=== PATIENT | female | born 1935 | race Hispanic/Latino ===

== ENCOUNTER 2017-09-07 05:10 | Inpatient (IN) | payer MEDICARE, OTHER ==
--- NOTE | 2017-09-07 05:47 | ED PDOC ---
HPI: Abdomen Time Seen by Provider: 09/07/17 05:35 Chief Complaint (Nursing): GI Problem Chief Complaint (Provider): Abdominal pain History Per: Patient History/Exam Limitations: no limitations Additional Complaint(s): Patient is an 82 y/o female with no significant past medical history presenting to the emergency department for cramping lower abdominal pain ongoing for several days. The cramps are accompanied by a sense of urgency to have a bowel movement but notes that these episodes result in little to no bowel movement. Of note, patient recently finished a seven day course of antibiotics one week ago to treat her bronchitis and notes having a colonoscopy done last year in which a polyp was removed. Denies any abdominal surgeries and denies dysuria, urinary frequency, fever, chills, bloody stool, or other complaints. PCP: none provided. Past Medical History Reviewed: Historical Data Vital Signs: Last Vital Signs Temp 97.7 F 09/07/17 05:23 Pulse 96 H 09/07/17 05:23 Resp 16 09/07/17 05:23 BP 177/99 H 09/07/17 05:23 Pulse Ox 98 09/07/17 05:56 - Medical History PMH: No Chronic Diseases - Surgical History Surgical History: No Surg Hx Other surgeries: Colonoscopy (polyp removal) - Family History Family History: States: No Known Family Hx - Allergies Allergies/Adverse Reactions: Allergies Allergy/AdvReac Type Severity Reaction Status Date / Time No Known Allergies Allergy Verified 09/07/17 05:26 - ECG O2 Sat by Pulse Oximetry: 98 Medical Decision Making Medical Decision Making: Time: 05:38 Initial impression: Abdominal pain Initial plan: Abdominal/pelvic CT scan with IV contrast EKG Labs: EKG, CMP, Lipase, CBC Urine Culture C Diff toxin test Urinalysis Reevaluation Scribe Attestation: Documented by Nisha Pierce, acting as a scribe for JULIA Gipson. Provider Scribe Attestation: All medical record entries made by the Scribe were at my direction and personally dictated by me. I have reviewed the chart and agree that the record accurately reflects my personal performance of the history, physical exam, medical decision making, and the department course for this patient. I have also personally directed, reviewed, and agree with the discharge instructions and disposition. Disposition - Clinical Impression Clinical Impression: Abdominal pain - Patient ED Disposition Is Patient to be Admitted: Transfer of Care - Disposition Disposition: Transfer of Care Disposition Time: 05:58 Condition: FAIR Forms: [facility] ([place]ar[place]) Patient Signed Over To: Damian Lee Handoff Comments: EKG/LABS/CT ABD/PELVIS/UA/RE-EVALUATION
--- NOTE | 2017-09-07 06:11 | ED PDOC ---
- Laboratory Results Result Diagrams: 09/07/17 06:10 09/07/17 06:10 - ECG O2 Sat by Pulse Oximetry: 98 (RA) Pulse Ox Interpretation: Normal Medical Decision Making Medical Decision Makin:00 Patient signed over to me from JULIA Gipson. Labs and abdominal CT pending. Scribe Attestation: Documented by Nisha Pierce, acting as a scribe for Damian Lee MD. Provider Scribe Attestation: All medical record entries made by the Scribe were at my direction and personally dictated by me. I have reviewed the chart and agree that the record accurately reflects my personal performance of the history, physical exam, medical decision making, and the department course for this patient. I have also personally directed, reviewed, and agree with the discharge instructions and disposition. Disposition - Clinical Impression Clinical Impression: Abdominal pain - Disposition Disposition: Transfer of Care Disposition Time: 07:00 Condition: FAIR Forms: [facility] (Kosovan) Patient Signed Over To: Erasmo Araiza Handoff Comments: pending CT
[2017-09-07 06:15] LABS: BASO # 0.1 K/uL (0.0-0.2); BASO % 0.7 % (0.0-2.0); EOS # 0.3 K/uL (0.0-0.7); EOS % 1.9 % (0.0-4.0); HEMATOCRIT 40.4 % (34.0-47.0); LYMPH # 1.8 K/uL (1.0-4.3); LYMPH % 12.6 % (20.0-40.0); MEAN CELL VOLUME 93.2 fl (81.0-99.0); MEAN CORPUSCULAR HEMOGLOBIN 30.5 pg (27.0-31.0); MEAN CORPUSCULAR HGB CONC 32.8 g/dL (33.0-37.0); MONO # 1.2 K/uL (0.0-0.8); MONO % 8.5 % (0.0-10.0); NEUT % 76.3 % (50.0-75.0); NRBC % 0.2 % (0.0-0.0); RED CELL DISTRIBUTION WIDTH 13.2 % (11.5-14.5); WHITE BLOOD COUNT 14.4 K/uL (4.8-10.8)
[2017-09-07] MEDS: Sodium Chloride 0.9% 250 ML IV SCH ×4 (06:24→16:50)
[2017-09-07 06:32] LABS: ALB/GLOB RATIO 1.2 (1.0-2.1); ALKALINE PHOSPHATASE 67 U/L (38-126); ALT/SGPT 28 U/L (9-52); AST/SGOT 23 U/L (14-36); BILIRUBIN,TOTAL 0.5 mg/dl (0.2-1.3); BLOOD UREA NITROGEN 15 mg/dl (7-17); CALCIUM 8.6 mg/dL (8.4-10.2); CARBON DIOXIDE 24 mmol/L (22-30); CHLORIDE 109 mmol/L (98-107); GFR AFRICAN-AMERICAN > 60; GLUCOSE,RANDOM 112 mg/dL (65-105); LIPASE 169 U/L (23-300); POTASSIUM 4.1 MMOL/L (3.6-5.0); SODIUM 141 mmol/l (132-148); TOTAL PROTEIN 7.2 G/DL (6.3-8.2)
[2017-09-07] MEDS ORDERED: Iohexol 300 100 ML IJ ONE (06:45)
[2017-09-07] MEDS ORDERED: Sodium Chloride 0.9% 50 ML IV ONE (06:45)
--- NOTE | 2017-09-07 07:10 | ED PDOC ---
- Laboratory Results Result Diagrams: 09/07/17 06:10 09/07/17 06:10 - ECG O2 Sat by Pulse Oximetry: 98 (RA) Pulse Ox Interpretation: Normal Medical Decision Making Medical Decision Making: Time: 7:00 --Patient transferred to [place] by Dr. Damian Lee pending CT Scribe Attestation: Documented by El Wadsworth, acting as a scribe for Erasmo Araiza MD Provider Scribe Attestation: All medical record entries made by the Scribe were at my direction and personally dictated by me. I have reviewed the chart and agree that the record accurately reflects my personal performance of the history, physical exam, medical decision making, and the department course for this patient. I have also personally directed, reviewed, and agree with the discharge instructions and disposition. Disposition Counseled Patient/Family Regarding: Studies Performed, Diagnosis - Clinical Impression Clinical Impression: Diverticulitis - POA Present On Arrival: None - Disposition Disposition: Admitted as In-Patient Disposition Time: 08:20 Condition: STABLE
[2017-09-07 08:55] LABS: RBC URINE 2 /hpf (0-3); URINE BILIRUBIN NEGATIVE (NEGATIVE); URINE BLOOD MODERATE (NEGATIVE); URINE COLOR YELLOW (YELLOW); URINE GLUCOSE (UA) NEG (Normal); URINE KETONE NEGATIVE (NEGATIVE); URINE LEUKOCYTE ESTERASE TRACE Leu/uL (Negative); URINE PROTEIN NEGATIVE (NEGATIVE); URINE UROBILINOGEN 0.2-1.0 mg/dL (0.2-1.0); WBC URINE 3 /hpf (0-5)
[2017-09-07] MEDS ORDERED: metroNIDAZOLE 500mg/100ml NS 100 ML IVPB STA (09:15)
[2017-09-07] MEDS ORDERED: Ciprofloxacin 400mg/200ml D5W 400 MG/200 ML BAG IVPB STA (09:15)
--- NOTE | 2017-09-07 09:17 | CT ---
PROCEDURE: CT Abdomen and Pelvis with contrast HISTORY: EVALUATE FOR COLITIS/DIVERTICULITIS COMPARISON: None. TECHNIQUE: Contrast dose: Omnipaque 300, 90 cc. Radiation dose: Total exam DLP = 660.07 mGy-cm. This CT exam was performed using one or more of the following dose reduction techniques: Automated exposure control, adjustment of the mA and/or kV according to patient size, and/or use of iterative reconstruction technique. FINDINGS: LOWER THORAX: Multifocal ground-glass opacity may reflect interstitial pulmonary disease bilaterally. No pleural or pericardial effusion. Borderline cardiomegaly noted. LIVER: There is a 1.1 cm lucency identified at the dome of the liver posteriorly, which measures 37 Hounsfield units and is not definitively a simple cyst. Follow-up MRI without contrast advised for additional evaluation. There 1 or 2 additional lucency seen in the left and right lobes liver which is too small to characterize. GALLBLADDER AND BILE DUCTS: Limited cholelithiasis is not excluded the nondependent gallbladder laterally with the gallbladder is distended but otherwise unremarkable. No significant biliary tree dilatation appreciable throughout. PANCREAS: Unremarkable. No gross lesion or ductal dilatation. SPLEEN: Unremarkable. ADRENALS: Unremarkable. No mass. KIDNEYS AND URETERS: Unremarkable. No hydronephrosis. No solid mass. VASCULATURE: Non-aneurysmal aortic atherosclerosis identified. BOWEL: Peristalsis limits evaluation of small large-bowel as well as the lack of oral contrast administration. Mildly prominent retained fecal material seen at the ascending colon. There is thickening of the distal duodenum extending into the proximal segment of the jejunum but without local mesenteric reaction or fluid collection associated. Nevertheless, consider potential segmental enteritis of indeterminate etiology. Diverticular changes are identified the sigmoid colon with mural thickening and local pericolic reaction. No definite abscess appreciated. Loculated extra luminal gas is not excluded but no free intraperitoneal gas is appreciable. Overall, the pattern is most compatible with sigmoid diverticulitis. Clinically correlate for potential additional infectious or inflammatory causes as well as neoplasm. Ischemia is not favored but is including the differential diagnosis. APPENDIX: Normal appendix. PERITONEUM: Unremarkable. No free fluid. No free air. LYMPH NODES: Unremarkable. No enlarged lymph nodes. BLADDER: Unremarkable. REPRODUCTIVE: Unremarkable. BONES: No acute fracture. OTHER FINDINGS: None. IMPRESSION: 1. Findings most compatible with sigmoid diverticulitis though clinically correlate for additional causes of segmental colitis as discussed above. No abscess or definitive free intraperitoneal gas, however, extraluminal loculated gas is difficult to completely exclude. 2. Potential segmental enteritis involving the distal duodenum proximal jejunal bowel. Please see discussion above. 3. Cholelithiasis is not excluded. 4. 1.1 cm lucency is seen at the dome liver for which follow-up MRI is advised without contrast. Is difficult to determine whether this is a complex cyst or possible nodule. 5. Scattered ground-glass opacity bilateral lung bases. No pleural or pericardial effusion.
[2017-09-07] MEDS ORDERED: Ciprofloxacin 400mg/200ml D5W 400 MG/200 ML BAG IVPB ONE (09:37)
[2017-09-07] MEDS ORDERED: metroNIDAZOLE 500mg/100ml NS 100 ML IVPB ONE (12:31)
--- NOTE | 2017-09-07 17:12 | CP.PCM.HP ---
History of Present Illness - History of Present Illness History of Present Illness: An 82 year old female came for intermittent cramping abdominal pain for about three days. She has diffuse lower abdominal pain which was not relieved by passing gas. She denies diarrhea, constipation, nausea or vomiting of fever or chills. She recently traveled a lot to [place] and visit her son in [place]. She stayed overnight at a hospital in [facility] for 'bronchitis' and she finished taking out patient antibiotics. She does not cough now, but she has sputum. One year ago she had a colonoscopy by a GI doctor in [place] which showed a polyp which was removed. She is ambulatory and lived with her . She is a remote ex-smoker. Present on Admission - Present on Admission Any Indicators Present on Admission: No History of DVT/PE: No History of Uncontrolled Diabetes: No Urinary Catheter: No Decubitus Ulcer Present: No Review of Systems - Constitutional Constitutional: absent: Chills, Night Sweats, Weight Loss - Cardiovascular Cardiovascular: absent: Chest Pain - Respiratory Respiratory: absent: Cough, Dyspnea - Gastrointestinal Gastrointestinal: Abdominal Pain. absent: Loose Stools, Nausea, Vomiting Past Patient History - Past Social History Smoking Status: Never Smoked - CARDIAC Hx Cardiac Disorders: No - PULMONARY Hx Respiratory Disorders: No - NEUROLOGICAL Hx Neurological Disorder: No - HEENT Hx HEENT Problems: No - RENAL Hx Chronic Kidney Disease: No - ENDOCRINE/METABOLIC Hx Endocrine Disorders: No - HEMATOLOGICAL/ONCOLOGICAL Hx Blood Disorders: No - INTEGUMENTARY Hx Dermatological Problems: No - MUSCULOSKELETAL/RHEUMATOLOGICAL Hx Musculoskeletal Disorders: No - GENITOURINARY/GYNECOLOGICAL Hx Genitourinary Disorders: No - PSYCHIATRIC Hx Psychophysiologic Disorder: No - SURGICAL HISTORY Other/Comment: polyp removal Meds Allergies/Adverse Reactions: Allergies Allergy/AdvReac Type Severity Reaction Status Date / Time No Known Allergies Allergy Verified 09/07/17 05:26 Physical Exam - Constitutional Appears: No Acute Distress - Respiratory Exam Respiratory Exam: Clear to Auscultation Bilateral. absent: Wheezes - Cardiovascular Exam Cardiovascular Exam: REGULAR RHYTHM. absent: Systolic Murmur - GI/Abdominal Exam GI & Abdominal Exam: Hyperactive Bowel Sounds, Soft. absent: Tenderness Results - Vital Signs Recent Vital Signs: Last Vital Signs Temp 98 F 09/07/17 16:10 Pulse 81 09/07/17 16:10 Resp 20 09/07/17 16:10 BP 134/75 12/05/17 16:10 Pulse Ox 96 09/07/17 16:10 - Labs Result Diagrams: 09/07/17 06:10 09/07/17 06:10 Labs: Laboratory Results - last 24 hr 09/07/17 09/07/17 09/07/17 06:10 06:10 08:27 WBC 14.4 H RBC 4.33 Hgb 13.2 Hct 40.4 MCV 93.2 MCH 30.5 MCHC 32.8 L RDW 13.2 Plt Count 278 MPV 9.0 Neut % (Auto) 76.3 H Lymph % (Auto) 12.6 L [place] % (Auto) 8.5 Eos % (Auto) 1.9 Baso % (Auto) 0.7 Neut # 11.0 H Lymph # 1.8 [place] # 1.2 H Eos # 0.3 Baso # 0.1 Sodium 141 Potassium 4.1 Chloride 109 H Carbon Dioxide 24 Anion Gap 12 BUN 15 Creatinine 0.8 Est GFR ( Amer) > 60 Est GFR (Non-Af Amer) > 60 Random Glucose 112 H Calcium 8.6 Total Bilirubin 0.5 AST 23 ALT 28 Alkaline Phosphatase 67 Total Protein 7.2 Albumin 3.9 Globulin 3.3 Albumin/Globulin Ratio 1.2 Lipase 169 Urine Color Yellow Urine Clarity Slighty-cloudy Urine pH 5.0 Ur Specific [place] 1.040 H Urine Protein Negative Urine Glucose (UA) Neg Urine Ketones Negative Urine Blood Moderate Urine Nitrate Negative Urine Bilirubin Negative Urine Urobilinogen 0.2-1.0 Ur Leukocyte Esterase Trace Urine RBC (Auto) 2 Urine Microscopic WBC 3 Ur Squamous Epith Cells < 1 Assessment & Plan - Assessment and Plan (Free Text) Assessment: acute diverticulitis of Sigmoid colon leukocytosis CAT scan finding Plan: iv cipro and iv flagyl clear liquid diet consult GI Decision To Admit - Pt Status Changed To: Hospital Disposition Of: Inpatient - Admit Certification Admit to Inpatient:: After my assessment, the patient will require hospitalization for at least two midnights. This is because of the severity of symptoms shown, intensity of services needed, and/or the medical risk in this patient being treated as an outpatient. - . Bed Request Type: Med/Surg Admitting Physician: Latisha Fraire
[2017-09-07] MEDS: Ciprofloxacin 400mg/200ml D5W 400 MG/200 ML BAG IVPB SCH (21:00)
[2017-09-07] MEDS: Sodium Chloride 0.9% 1,000 ML IV SCH (21:19)
[2017-09-07] MEDS: Enoxaparin 30 mg Syringe SC SCH (21:29)
[2017-09-08] MEDS: metroNIDAZOLE 500mg/100ml NS 100 ML IVPB SCH ×3 (00:48→16:25)
[2017-09-08] MEDS: Enoxaparin 30 mg Syringe SC SCH ×2 (08:37→09:00)
[2017-09-08] MEDS: Sodium Chloride 0.9% 1,000 ML IV SCH (08:38)
[2017-09-08] MEDS: Ciprofloxacin 400mg/200ml D5W 400 MG/200 ML BAG IVPB SCH ×2 (08:38→21:03)
--- NOTE | 2017-09-08 09:08 | CON ---
DATE: 09/07/2017 REFERRING PHYSICIAN: Dr. Fraire. REASON FOR CONSULTATION: Diverticulitis. HISTORY OF PRESENT ILLNESS: This is a lea 82-year-old female, who essentially had intermittent abdominal pain and cramping over the last three days or so. Pain is in the left lower quadrant. Had a colonoscopy recently which was grossly unremarkable, has no diarrhea, no constipation. Has no fevers or chills. No nausea, no vomiting. Currently lying in bed comfortably in no apparent distress. PAST MEDICAL HISTORY: As above. PAST SURGICAL HISTORY: As above. MEDICATIONS: Have been reviewed. REVIEW OF SYSTEMS: All other systems have been reviewed, negative apart from the HPI. PHYSICAL EXAMINATION: GENERAL: This is a pleasant, elderly-appearing female lying in bed comfortably in no apparent distress. VITAL SIGNS: Here in the hospital are grossly unremarkable. HEENT: Head: Normocephalic and atraumatic. Eyes: Pupils are equally reactive to light bilaterally. No conjunctival pallor or icterus. NECK: Supple. Normal range of motion. No lymphadenopathy appreciated. LUNGS: Coarse breath sounds bilaterally. HEART: S1, S2. Regular rate and rhythm. No murmurs appreciated. ABDOMEN: Soft, some discomfort in left lower quadrant. No rebound, no guarding. RECTAL: Deferred. EXTREMITIES: Pulses felt bilaterally. SKIN: Warm, dry, and intact. NEUROLOGIC: A and O x3. LABORATORY DATA: Labs reviewed. WBC 14.4, hemoglobin 13.2. CAT scan shows diverticulitis in the sigmoid area. ASSESSMENT AND PLAN: This is an 82-year-old female with diverticulitis. Antibiotics for total of 10 to 14 days, colonoscopy in 6 to 8 weeks, advance diet as tolerated. Thank you for the consult. Jose Armando Christian MD/ PhD cc:
[2017-09-08 12:25] LABS: HEMATOCRIT 36.6 % (34.0-47.0); MEAN CORPUSCULAR HEMOGLOBIN 30.3 pg (27.0-31.0); MEAN CORPUSCULAR HGB CONC 32.6 g/dL (33.0-37.0); WHITE BLOOD COUNT 7.3 K/uL (4.8-10.8)
--- NOTE | 2017-09-08 12:31 | CARD ---
APPROVED REPORT EKG Measurement Heart [id number] <Conclusion> Normal sinus rhythm Possible Septal infarct, age undetermined Abnormal ECG
[2017-09-08 12:50] LABS: BLOOD UREA NITROGEN 7 mg/dl (7-17); CALCIUM 8.3 mg/dL (8.4-10.2); CARBON DIOXIDE 24 mmol/L (22-30); CHLORIDE 110 mmol/L (98-107); GFR AFRICAN-AMERICAN > 60; GLUCOSE,RANDOM 85 mg/dL (65-105); POTASSIUM 4.1 MMOL/L (3.6-5.0); SODIUM 140 mmol/l (132-148)
--- NOTE | 2017-09-08 16:02 | CP.PCM.PN ---
Subjective - Date & Time of Evaluation Date of Evaluation: 09/08/17 Time of Evaluation: 16:00 - Subjective Subjective: no pain Objective - Vital Signs/Intake and Output Vital Signs (last 24 hours): Temp Pulse Resp BP Pulse Ox 97.7 F 80 20 145/89 97 09/08/17 08:42 09/08/17 08:42 09/08/17 08:42 09/08/17 08:42 09/08/17 08:42 - Medications Medications: Current Medications Enoxaparin Sodium (Lovenox) 30 mg SC DAILY VANDANA PRN Reason: Protocol Last Admin: 09/08/17 09:00 Dose: Not Given Ciprofloxacin (Cipro 400mg/200ml Dsw) 400 mg in 200 mls @ 200 mls/hr IVPB Q12 VANDANA PRN Reason: Protocol Last Admin: 09/08/17 08:38 Dose: 200 mls/hr Metronidazole (Flagyl 500mg/100ml Ns) 100 mls @ 100 mls/hr IVPB Q8 VANDANA PRN Reason: Protocol Last Admin: 09/08/17 08:37 Dose: 100 mls/hr Sodium Chloride (Sodium Chloride 0.9%) 1,000 mls @ 80 mls/hr IV .[id number] VANDANA Stop: 09/08/17 19:46 Last Admin: 09/08/17 08:38 Dose: 80 mls/hr - Labs Labs: 09/08/17 12:20 09/08/17 12:20 - Head Exam Head Exam: NORMAL INSPECTION - Neck Exam Neck Exam: Normal Inspection - Respiratory Exam Respiratory Exam: NORMAL BREATHING PATTERN - Cardiovascular Exam Cardiovascular Exam: REGULAR RHYTHM - GI/Abdominal Exam GI & Abdominal Exam: Soft, Normal Bowel Sounds Assessment and Plan - Assessment and Plan (Free Text) Assessment: 82 yo female with diverticulitis advance diet colonoscopy in 6-8 weeks
--- NOTE | 2017-09-08 18:29 | CP.PCM.PN ---
Subjective - Date & Time of Evaluation Date of Evaluation: 09/08/17 Time of Evaluation: 18:27 - Subjective Subjective: less abdominal pain her at bed side Objective - Vital Signs/Intake and Output Vital Signs (last 24 hours): Temp Pulse Resp BP Pulse Ox 97.5 F L 104 H 20 150/85 94 L 09/08/17 16:47 09/08/17 16:47 09/08/17 16:47 09/08/17 16:47 09/08/17 16:47 - Medications Medications: Current Medications Enoxaparin Sodium (Lovenox) 30 mg SC DAILY VANDANA PRN Reason: Protocol Last Admin: 09/08/17 09:00 Dose: Not Given Ciprofloxacin (Cipro 400mg/200ml Dsw) 400 mg in 200 mls @ 200 mls/hr IVPB Q12 VANDANA PRN Reason: Protocol Last Admin: 09/08/17 08:38 Dose: 200 mls/hr Metronidazole (Flagyl 500mg/100ml Ns) 100 mls @ 100 mls/hr IVPB Q8 VANDANA PRN Reason: Protocol Last Admin: 09/08/17 16:25 Dose: 100 mls/hr Sodium Chloride (Sodium Chloride 0.9%) 1,000 mls @ 80 mls/hr IV .[id number] VANDANA Stop: 09/08/17 19:46 Last Admin: 09/08/17 08:38 Dose: 80 mls/hr - Labs Labs: 09/08/17 12:20 09/08/17 12:20 - Constitutional Appears: No Acute Distress - Respiratory Exam Respiratory Exam: Clear to Ausculation Bilateral - Cardiovascular Exam Cardiovascular Exam: REGULAR RHYTHM. absent: Murmur - GI/Abdominal Exam GI & Abdominal Exam: Soft. absent: Tenderness Assessment and Plan - Assessment and Plan (Free Text) Assessment: acute diverticulitis improving Plan: continue iv metronidazole and iv cipro advance diet as tolerate as per GI stool C-diff pending
[2017-09-09] MEDS: metroNIDAZOLE 500mg/100ml NS 100 ML IVPB SCH ×2 (00:54→08:19)
[2017-09-09] MEDS: Enoxaparin 30 mg Syringe SC SCH (08:18)
[2017-09-09] MEDS: Ciprofloxacin 400mg/200ml D5W 400 MG/200 ML BAG IVPB SCH (08:20)
[2017-09-09 08:41] VITALS: BP 138/87; PULSE 68; RESP 20; TEMP 97.5; O2SAT 97
--- NOTE | 2017-09-09 09:44 | CP.PCM.PN ---
Subjective - Date & Time of Evaluation Date of Evaluation: 09/09/17 Time of Evaluation: 09:40 - Subjective Subjective: no pain Objective - Vital Signs/Intake and Output Vital Signs (last 24 hours): Temp Pulse Resp BP Pulse Ox 97.5 F L 68 20 138/87 97 09/09/17 08:40 09/09/17 08:40 09/09/17 08:40 09/09/17 08:40 09/09/17 08:40 - Medications Medications: Current Medications Enoxaparin Sodium (Lovenox) 30 mg SC DAILY VANDANA PRN Reason: Protocol Last Admin: 09/09/17 08:18 Dose: Not Given Ciprofloxacin (Cipro 400mg/200ml Dsw) 400 mg in 200 mls @ 200 mls/hr IVPB Q12 VANDANA PRN Reason: Protocol Last Admin: 09/09/17 08:20 Dose: 200 mls/hr Metronidazole (Flagyl 500mg/100ml Ns) 100 mls @ 100 mls/hr IVPB Q8 VANDANA PRN Reason: Protocol Last Admin: 09/09/17 08:19 Dose: 100 mls/hr - Labs Labs: 09/08/17 12:20 09/08/17 12:20 - Head Exam Head Exam: NORMAL INSPECTION - Respiratory Exam Respiratory Exam: NORMAL BREATHING PATTERN - GI/Abdominal Exam GI & Abdominal Exam: Soft, Normal Bowel Sounds Assessment and Plan - Assessment and Plan (Free Text) Assessment: 82 yo female with diverticulitis doing well dc planning colonoscopy in 6-8 weeks
--- NOTE | 2017-09-09 10:22 | CP.PCM.PCO ---
Assessment & Plan - Assessment and Plan (Free Text) Assessment: t. sitting up in bed eating breakfast. Feels well today, denies fever, chills, abd pain, n/v/d Lungs CTA Abd soft, NT pt. tolerating regular diet, VSS, afebrile, leukocytosis resolved pt. cleared fro discharge to Home today by , Dr. Fraire pt. will f/u with Dr. Christian outpatient for colonoscopy in 4-6 weeks f/u with pmd in 1 week
--- NOTE | 2017-09-09 15:37 | CP.PCM.PN ---
Subjective - Date & Time of Evaluation Date of Evaluation: 09/09/17 Time of Evaluation: 10:35 - Subjective Subjective: no abdominal pain no diarrhea no fever Objective - Vital Signs/Intake and Output Vital Signs (last 24 hours): Temp Pulse Resp BP Pulse Ox 97.5 F L 68 20 138/87 97 09/09/17 08:40 09/09/17 08:40 09/09/17 08:40 09/09/17 08:40 09/09/17 08:40 - Labs Labs: 09/08/17 12:20 09/08/17 12:20 - Constitutional Appears: No Acute Distress - Respiratory Exam Respiratory Exam: NORMAL BREATHING PATTERN. absent: Rales - Cardiovascular Exam Cardiovascular Exam: REGULAR RHYTHM. absent: Murmur - GI/Abdominal Exam GI & Abdominal Exam: Soft. absent: Tenderness Assessment and Plan - Assessment and Plan (Free Text) Assessment: acute diverticulitis improved negative stool c-diff Plan: GI cleared the patient to discharge home follow up with PMD gradually increase fiber in her diet colonoscopy in 6-8 weeks up to a GI doctor follow up
== END 2017-09-09 10:35 | disposition home or self-care (01) | DRG 392 ==
LOC: H.ER 05:10 → H.ERHOLD 09:20 → H.MEDSURG1 13:33
PROVIDERS: ADMIT Internal Medicine; ATTEND Internal Medicine
DX: K57.32 Diverticulitis of large intestine without perforation or abscess without bleeding (principal); D72.829 Elevated white blood cell count, unspecified; Z87.891 Personal history of nicotine dependence